=== PATIENT | female | born 2000 | race African-American/Black ===

== ENCOUNTER 2021-12-23 13:36 | Emergency (ER) | payer SELFPAY ==
[~2021-12-23] VITALS: Ht 172.7 cm; Wt 106.1 kg
[2021-12-23 14:48] LABS: BASOPHILS % 0.2 % (0.0-1.0); EOSINOPHILS % 0.2 % (0.0-6.0); HEMATOCRIT 30.1 % (34.2-44.1); HEMOGLOBIN 8.9 g/dL (12.0-16.0); LYMPHOCYTES # (AUTO) 1.8 (1.0-3.2); LYMPHOCYTES % 39.3 % (18.0-39.1); MEAN CORPUSCULAR HEMOGLOBIN 27.6 pg (28-32); MEAN CORPUSCULAR HGB CONC 29.6 g/dL (31-35); MEAN CORPUSCULAR VOLUME 93.2 fL (81-99); MONOCYTES # (AUTO) 0.3 (0.2-0.8); MONOCYTES % 6.8 % (4.4-11.3); NEUTROPHILS # (AUTO) 2.5 (2.1-6.9); NEUTROPHILS % 53.5 % (38.7-80.0); PLATELET COUNT 298 x10e3/uL (140-360); RED BLOOD COUNT 3.23 x10e6/uL (3.6-5.1); RED CELL DISTRIBUTION WIDTH 14.5 % (11.7-14.4)
[2021-12-23 15:05] LABS: ALBUMIN 3.6 g/dL (3.5-5.0); ALBUMIN/GLOBULIN RATIO 0.9 (0.8-2.0); ANION GAP 14.7 mmol/L (8-16); CALCIUM 8.5 mg/dL (8.4-10.2); CREATININE, SERUM 0.8 mg/dL (0.57-1.11); POTASSIUM 3.7 mmol/L (3.5-5.1)
[2021-12-23] MEDS ORDERED: ANAPROX DS550 MG PEG (15:19)
[2021-12-23] MEDS ORDERED: ONDANSETRON ODT4 MG PO (15:19)
[2021-12-23] MEDS ORDERED: HYDROCODONE/APAP 5MG-325MG TAB PO ONE (15:30)
== END 2021-12-23 15:33 | disposition home or self-care (01) ==
LOC: ER 13:41
DX: N93.8 Other specified abnormal uterine and vaginal bleeding (principal); D64.9 Anemia, unspecified
CPT/HCPCS: 36415; 80053; 84702; 85025; 99284